=== PATIENT | female | born 1975 | race Caucasian/White ===

== ENCOUNTER → 2017-04-26 | Outpatient (CLI) | payer BC ==
[~2017-04-26] MED LIST: PRENTAB26 PO
== END | disposition home or self-care (01) ==
LOC: C.PAPS 15:16
PROVIDERS: ATTEND Obstetrics & Gynecology
DX: Z01.419 Encounter for gynecological examination (general) (routine) without abnormal findings (principal)

== ENCOUNTER → 2017-09-29 | Outpatient (CLI) | payer BC ==
--- NOTE | 2017-09-29 16:40 | DIAGNOSTIC IMAGING REPORT ---
ULTRASOUND SOFT TISSUES NECK CLINICAL HISTORY: Enlarged lymph nodes. COMPARISON STUDY: No priors. FINDINGS: Real-time, grayscale, and color flow sonography is performed in the submental region at the site of palpable concern. There are prominent submental lymph nodes identified. These are not pathologically enlarged by size criteria. The largest node measures 1.0 x 0.5 x 1.1 cm and appears slightly hyperemic on color imaging. IMPRESSION: There are prominent submental lymph nodes identified at the site of interest. These are not pathologically enlarged by size criteria and are likely reactive. Continued clinical follow-up is recommended. If these lymph nodes continue to enlarge then a repeat ultrasound and fine needle aspiration should be considered. Electronically signed by: Johny Conde M.D. 09/29/2017 4:38 PM Dictated Date/Time: 09/29/2017 4:36 PM
== END | disposition home or self-care (01) ==
LOC: C.ULTR 16:00
PROVIDERS: ATTEND Family Medicine
DX: R59.0 Localized enlarged lymph nodes (principal)

== ENCOUNTER → 2018-06-20 | Outpatient (CLI) | payer BC | END | disposition home or self-care (01) | LOC: C.PAPS 14:50 | PROVIDERS: ATTEND Obstetrics & Gynecology | DX: Z01.419 Encounter for gynecological examination (general) (routine) without abnormal findings (principal) ==